=== PATIENT | female | born 1985 | race African-American/Black ===

== ENCOUNTER 2019-08-01 13:33 | Emergency (ER) | payer OTHER ==
[~2019-08-01] VITALS: Ht 149.9 cm; Wt 56.2 kg
[~2019-08-01 13:33] MED LIST: NOHOMEMEDICATIONS; PHENERGAN 25 MG25 M1 PO; ULTRAM 50MG TAB50 MG PO
[2019-08-01] MEDS ORDERED: NORFLEX100 MG PO (15:07)
[2019-08-01] MEDS ORDERED: NORCO 5-325 TA1 EAC1 PO (15:07)
[2019-08-01] MEDS ORDERED: NAPROSYN500 MG PO (15:07)
[2019-08-01 15:35] VITALS: BP 139/100
== END 2019-08-01 15:37 | disposition home or self-care (01) ==
LOC: ER 13:33
DX: S43.101A Unspecified dislocation of right acromioclavicular joint, initial encounter (principal); S16.1XXA Strain of muscle, fascia and tendon at neck level, initial encounter; M25.512 Pain in left shoulder; R07.89 Other chest pain; Z90.89 Acquired absence of other organs; Y04.2XXA Assault by strike against or bumped into by another person, initial encounter; Y93.89 Activity, other specified; Y92.89 Other specified places as the place of occurrence of the external cause; Y99.8 Other external cause status